=== PATIENT | male | born 1940 | race Caucasian/White ===

== ENCOUNTER 2019-07-27 04:51 | Inpatient (IN) ==
[2019-07-21 07:55] LABS: Appearance,Urine CLEAR; Bacteria,Urine 0 /hpf (0); Bilirubin,Urine NEG (NEG); Color,Urine YELLOW; Culture Indicated,Urine NO; Glucose,Urine (UA) NEGATIVE (NEG); Ketones,Urine 5/TR mg/dL (NEG); Leukocyte Esterase,Urine NEG /uL (NEG); Mucus,Urine FEW /hpf (0); Nitrate,Urine NEG (NEG); Protein,Urine 30 mg/dL (NEG); Specific Gravity,Urine 1.027 (1.000-1.035); Urine Blood NEG mg/dL (<0.03); Urine Hyaline Cast 6 /lpf (0-2); Urine RBC 1 /hpf (0-1); Urine Squamous Epithelial Cell < 1 /hpf (0-4); Urine WBC 1 /hpf (0-4)
[2019-07-21 07:56] LABS: Basophils # (Auto) 0.03 K/mcL (0.00-0.30); Basophils % (Auto) 0.3 % (0.0-2.0); Blood Urea Nitrogen 35 mg/dl (8-23); Calcium 10.2 mg/dl (8.6-10.4); Carbon Dioxide 22 mmol/L (22-30); Chloride 102 mmol/L (96-108); Estimated Average Glucose(eAG) 140 mg/dL; Glomerular Filtration Rate 52; Glucose 121 mg/dL (70-105); Granulocytes % (Auto) 68.4 % (38.0-78.0); Hematocrit 36.9 % (40.1-51.0); Hemoglobin 11.9 g/dL (13.7-17.5); Hemoglobin A1C 6.5 % HGB (4.0-6.0); Lymphocytes # (Auto) 2.43 K/mcL (1.50-4.80); Lymphocytes % (Auto) 23.8 % (15.5-49.0); Mean Cell Volume 94.6 fL (80.0-100.0); Mean Corpuscular HGB Conc 32.2 g/dL (31.0-36.0); Mean Platelet Volume 12.2 fL (7.4-10.4); Monocytes # (Auto) 0.66 K/mcL (0.10-0.90); Monocytes % (Auto) 6.5 % (1.0-12.0); Platelet Count 318 K/mcL (140-440); Red Cell Distribution Width 12.6 % (11.5-14.5); WBC 10.2 K/mcL (4.50-11.00)
[2019-07-27] MEDS ORDERED: SCOPOLAMINE 1 PATCH PATCH TOPICAL PRN (05:00)
[2019-07-27] MEDS ORDERED: IPRATROPIUM/ALBUTEROL 3 ML AMPUL.NEB NEB PRN ×2 (05:00→08:33)
[2019-07-27] MEDS ORDERED: ceFAZolin 2 GM in DEXTROSE 5% IN WATER 50 ML IV SCH (06:00)
[2019-07-27] MEDS ORDERED: CELECOXIB 200 MG CAPSULE PO SCH (06:00)
[2019-07-27] MEDS ORDERED: PREGABALIN 75 MG CAPSULE PO SCH (06:00)
[2019-07-27] MEDS ORDERED: oxyCODONE 10 MG TAB.ER.12H PO SCH (06:00)
[2019-07-27] MEDS ORDERED: MAGNESIUM SULFATE 2 GM/50 ML BAG IV ONE ×2 (07:29→09:40)
[2019-07-27] MEDS ORDERED: NALOXONE HCL 0.4 MG/ML VIAL IV PRN (08:33)
[2019-07-27] MEDS ORDERED: MEPERIDINE 25 MG/ML SYRINGE IV PRN (08:33)
[2019-07-27] MEDS ORDERED: diphenhydrAMINE 50 MG/ML VIAL IV PRN (08:33)
[2019-07-27] MEDS ORDERED: PROMETHAZINE 25 MG/ML VIAL IV PRN (08:33)
[2019-07-27] MEDS ORDERED: FLUMAZENIL 0.1 MG/ML ML IV PRN (08:33)
[2019-07-27] MEDS ORDERED: ePHEDrine 50 MG/ML AMPUL IV PRN (08:33)
[2019-07-27] MEDS ORDERED: ATROPINE SULFATE 0.4 MG/ML VIAL IV PRN (08:33)
[2019-07-27] MEDS ORDERED: ONDANSETRON 4 MG/2 ML VIAL IV PRN ×2 (08:33→09:09)
[2019-07-27] MEDS ORDERED: METHOCARBAMOL 1,000 MG/10 ML VIAL IV PRN (08:33)
[2019-07-27] MEDS ORDERED: LACTATED RINGERS 1,000 ML IV SCH (08:45)
[2019-07-27] MEDS ORDERED: ACETAMINOPHEN 1,000 MG/100 ML BOTTLE IV ONE (09:00)
[2019-07-27] MEDS ORDERED: TRANEXAMIC ACID 1,000 MG/10 ML VIAL IV ONE (09:09)
[2019-07-27] MEDS ORDERED: FLEETS ADULT ENEMA PR PRN (09:09)
[2019-07-27] MEDS ORDERED: DEXTROSE 31 GM ORAL.SUSP PO PRN (09:09)
[2019-07-27] MEDS ORDERED: MAGNESIUM HYDROXIDE 30 ML ORAL.SUSP PO PRN (09:09)
[2019-07-27] MEDS ORDERED: POLYETHYLENE GLYCOL 3350 17 GM PACKET PO PRN (09:09)
[2019-07-27] MEDS ORDERED: DEXTROSE 50% 50 ML VIAL IV PRN (09:09)
[2019-07-27] MEDS ORDERED: BENZOCAINE/MENTHOL 1 LOZENGE PO PRN (09:09)
[2019-07-27] MEDS ORDERED: HYDROmorphone 2 MG/ML VIAL IV PRN (09:09)
[2019-07-27] MEDS ORDERED: BISACODYL 10 MG SUPP.RECT PR PRN (09:09)
--- NOTE | 2019-07-27 09:09 | Brief Operative Note ---
Date of procedure: 07/27/19 Pre-op diagnosis: R hip severe OA Post-op diagnosis: same Procedure: Right anterior total hip arthroplasty Grafts/Implants: Yes (Depuy Actis 9 std stem, +5 36 delta head, 58 cup, neutral altrx liner) Anesthesia: GLMA Findings: severe arthritis Complications: none Surgeon: Jonah Ballesteros Recruiting And Selection Consultant: Lex Bach Estimated blood loss (cc): 250 Specimens Removed/Pathology: none sent Condition: stable Disposition: PACU
[2019-07-27] MEDS: fentaNYL 100 MCG/2 ML VIAL IV PRN ×4 (09:34→09:40)
[2019-07-27] MEDS ORDERED: PHENYLEPHRINE 10 MG/ML VIAL IV ONE (09:40)
[2019-07-27] MEDS ORDERED: DEXAMETHASONE 4 MG/ML VIAL IV ONE (09:40)
[2019-07-27] MEDS ORDERED: fentaNYL 100 MCG/2 ML VIAL IV ONE (09:40)
[2019-07-27] MEDS ORDERED: ROCURONIUM 10 MG/ML ML IV ONE (09:40)
[2019-07-27] MEDS ORDERED: ONDANSETRON 4 MG/2 ML VIAL IV ONE (09:40)
[2019-07-27] MEDS ORDERED: SUCCINYLCHOLINE 20 MG/ML ML IV ONE (09:40)
[2019-07-27] MEDS ORDERED: ePHEDrine 50 MG/ML AMPUL IV ONE (09:40)
[2019-07-27] MEDS ORDERED: GLYCOPYRROLATE 0.2 MG/ML VIAL IV ONE (09:40)
[2019-07-27] MEDS ORDERED: SUGAMMADEX SODIUM 200 MG/2 ML VIAL IV ONE (09:40)
[2019-07-27] MEDS ORDERED: PROPOFOL 200 MG/20 ML VIAL IV ONE (09:40)
[2019-07-27] MEDS ORDERED: KETAMINE 100 MG/ML ML IV ONE (09:40)
[2019-07-27] MEDS ORDERED: LIDOCAINE HCL/PF 100 MG/5 ML SYRINGE IV ONE (09:40)
[2019-07-27] MEDS: HYDROmorphone 2 MG/ML VIAL IV PRN ×2 (09:45→10:00)
--- NOTE | 2019-07-27 09:46 | Operative Note ---
DATE OF OPERATION: 07/27/2019 PREOPERATIVE DIAGNOSIS: Right hip severe osteoarthritis. POSTOPERATIVE DIAGNOSIS: Right hip severe osteoarthritis. PROCEDURE PERFORMED: Right anterior total hip arthroplasty placing a DePuy Actis size 9 standard offset femoral stem; a +5, 36 mm Delta ceramic head ball; a 58 [place] cup with a neutral AltrX liner. SURGEON: Jonah Ballesteros M.D. MACHINE FORMER: Osvaldo Bach PA-C. The PA's assistance was required for the safe and efficient completion of the entire case. This provider's expertise and technical skill were required throughout the case. The PA assisted with preoperative coordination, intraoperative retraction, wound closure, dressing and splint application, as well as postoperative documentation and care coordination. ANESTHESIA: General. DRAINS: None. SPECIMENS: Femoral head which was discarded. BLOOD LOSS: 250 mL. COMPLICATIONS: None. POSTOPERATIVE CONDITION: Stable. INDICATIONS FOR SURGERY: This is a 79-year-old male who has had progressive worsening, severe right hip pain. Radiographs showed severe [id number] osteoarthritis. FINDINGS AT SURGERY: Severe arthritis. Post implantation showed satisfactory component position. PROCEDURE IN DETAIL: The patient had been seen preoperatively. Informed consent obtained after discussion of risks and benefits of surgery. Risks including, but not limited to, bleeding; infection; injury to nerves, blood vessels, and other surrounding structures; anesthetic risks; incomplete or no resolution of symptoms; leg length discrepancy; dislocation; fracture; DVT and pulmonary embolus risks; and the possibility of needing further revision joint surgery. The patient understood these risks and wished to proceed. Correct operative site was marked and then spinal anesthesia given. The patient was then taken to the operating room and LMA general given. The patient was carefully transferred to the fracture table and then the operative hip was carefully prepped and draped in normal sterile fashion. Timeout was performed verifying patient name, operative site, and plan. Ioban was used to cover all skin surfaces. A standard anterior approach incision was made with a scalpel through skin and subcutaneous tissue. Hemostasis was obtained with Bovie cautery. Careful blunt dissection was taken down on the tensor fascia and then this was undermined circumferentially. IrriSept was irrigated and a ring retractor placed. Tensor fascia was incised in line with muscle fibers and then careful blunt dissection taken medial to the muscle belly. Blunt cobra retractors were placed on the superior and inferior femoral neck and then circumflex vessels were coagulated and cut and vastus fascia split distally. Anterior capsulectomy was performed and then the capsule releases. Corkscrew was placed in the femoral head. Prior to placement of the corkscrew we did take x-rays for joint point. Once a corkscrew was placed we used fluoroscopy to identify our approximate neck cut trajectory and then our femoral neck was cut with oscillating tip saw. Femoral head was removed and the acetabulum exposed. Labrum was excised circumferentially as well as soft tissue from the floor. We then irrigated with IrriSept. We then began sequentially reaming until 1 mm smaller than the final implant. We then opened the acetabular component. IrriSept was irrigated, after a minute pulse lavaged with saline and then the cup was impacted using the [id number]. Joint point was used to verify satisfactory cup position. A center hole cover was placed and then the acetabular liner was carefully aligned and impacted and carefully verified to be fully seated. We then released traction. The leg was externally rotated and released capsule around the medial neck. The leg was then extended and adducted. Capsule was released out towards greater trochanter and then the proximal femur was exposed. Box osteotome was used to gain canal entry and an awl was used to identify canal trajectory. Rongeur and rasp were used to lateralize and then we began sequentially broaching up to the final size. We calcar planed down onto the broach and then the neck trial and head ball were placed. The hip was reduced. Fluoro was brought in and x-rays taken, joint point was used to verify satisfactory position. We then re-dislocated and removed the trial implants. Definitive implants were opened. We then irrigated the femoral canal with IrriSept again, after a minute pulse lavaged with saline. The final stem was impacted and seated. We then opened the head ball. The stem was carefully cleaned and dried and the head ball was impacted. We then reduced the hip with satisfactory tension. Final fluoro images were taken and saved. We irrigated the joint with IrriSept, after a minute pulse lavaged with saline again and then closed the tensor fascia with two running #1 Vicryls, one running proximal, one running distal and a ring retractor was removed. Final IrriSept irrigation was done, after a minute final pulse lavage, and then fat was tacked to fascia with Vicryl and then 2-0 Monocryl for subcutaneous and tavon for skin. Xeroform and sterile dressing were applied. The patient was then awakened, extubated, and transferred to recovery in stable condition. STAR:karuna Job ID: [id number] Doc ID: [id number] Jonah Ballesteros MD
--- NOTE | 2019-07-27 10:26 | XRay Report ---
CLINICAL INFORMATION: Postsurgical follow-up TECHNIQUE: AP pelvis. AP and crosstable lateral right hip COMPARISON: Previous examination dated 06/05/2016 FINDINGS: Status post right total hip arthroplasty. Prosthetic components are in anatomic positions. There is soft tissue gas present. There are skin tavon overlying the right hip. IMPRESSION: Status post right total hip arthroplasty Interpreted and Authenticated by: Roly Cisneros 07/27/19
[2019-07-27] MEDS: 0.9 % SODIUM CHLORIDE 1,000 ML IV SCH ×2 (10:48→21:36)
[2019-07-27] MEDS: INSULIN LISPRO 1 UNIT/0.01 ML UNIT SQ SCH ×3 (11:44→21:33)
--- NOTE | 2019-07-27 14:53 | XRay Report ---
CLINICAL INFORMATION: Right hip replacement TECHNIQUE: 0.4 minutes fluoroscopy utilized by Dr. Ballesteros. Spot films were obtained. Right total hip arthroplasty performed. IMPRESSION: Intraoperative fluoroscopy and spot films as above Interpreted and Authenticated by: Roly Cisneros 07/27/19
[2019-07-27] MEDS: ceFAZolin 1 GM VIAL IV SCH (15:04)
[2019-07-27] MEDS: oxyCODONE/APAP 5/325MG TABLET PO PRN ×2 (15:04→21:33)
[2019-07-27] MEDS: 0.9 % SODIUM CHLORIDE 10 ML SYRINGE IV SCH ×2 (15:04→21:36)
[2019-07-27] MEDS: metFORMIN 850 MG TABLET PO SCH (17:35)
[2019-07-27] MEDS ORDERED: SENNOSIDES 1 TABLET PO SCH (21:00)
[2019-07-27] MEDS ORDERED: LATANOPROST OPHTH DROPS 2.5ML BOTTLE OU SCH (21:00)
[2019-07-27] MEDS ORDERED: ATORVASTATIN 20 MG TABLET PO SCH (21:00)
[2019-07-27] MEDS ORDERED: TAMSULOSIN 0.4 MG CAPSULE PO SCH (21:00)
[2019-07-27] MEDS: ASPIRIN 81 MG TAB.CHEW PO SCH (21:32)
[2019-07-27] MEDS: buPROPion 150 MG TAB.SR.12H PO SCH (21:32)
[2019-07-27] MEDS: DOCUSATE SODIUM 100 MG CAPSULE PO SCH (21:33)
[2019-07-27] MEDS: NABUMETONE 500 MG TABLET PO SCH (21:45)
[2019-07-27] MEDS: KETOROLAC 15 MG/ML VIAL IV PRN (21:46)
[2019-07-28] MEDS: ceFAZolin 1 GM VIAL IV SCH (00:10)
[2019-07-28] MEDS: oxyCODONE/APAP 5/325MG TABLET PO PRN ×2 (03:00→08:58)
[2019-07-28] MEDS: KETOROLAC 15 MG/ML VIAL IV PRN (05:14)
[2019-07-28] MEDS: 0.9 % SODIUM CHLORIDE 10 ML SYRINGE IV SCH (05:18)
--- NOTE | 2019-07-28 07:10 | Discharge Summary ---
Providers - Providers Patient information: Note initiated : 07/28/19 at 7:07 am Service Date, if different from initiated Date: [] Patient: Chay Alexander 79 y/o M admitted on 07/27/19 for Right Total Hip Arthroplasty. Chief Complaint: [] Discharge date: 07/28/19 Hospitalization Hospital Course: Pt was admitted for a R JONAH. Pt underwent procedure on day of admission. Pt stayed one night on the floor for IV pain meds IV abx and PT. Pt will take ASA for DVT prophylaxis. f/u in 2 weeks. Discharge diagnosis: R hip OA Exam - Exam Clean and dry: Yes Weight bearing status: as tolerated Ortho Discharge - JONAH - Patient Instructions Diet: Regular Diet Activity: activity as tolerated, weight bearing as tolerated Total Hip Protocol: Follow activity instructions as provided by Physical Therapy. Dressing Care: May shower in 2 days - Follow Up Plan Disposition: Home, Self-Care Prognosis: Good Rehab Potential: Good Overall status at discharge: patient is progressing back to baseline - Orders For Discharge Prescriptions: Aspirin 81 mg PO BID #60 tab.chew Transmission Status: Pending to [address] oxyCODONE/APAP [Percocet 5-325 mg] 1 - 2 tab PO Q6HP PRN #70 tab PRN Reason: Pain Level 3-6 Prescription Printed Pending Studies Resuscitation Status Full Code Diet Consistent Carbohydrate Diet Start ThuJul 27 909 Aspirin (Aspirin) 81 mg PO BID [facility] Last Admin: 07/27/19 21:32 Dose: 81 mg Documented by: OSKAR Atorvastatin Calcium (Lipitor) 20 mg PO HS [facility] Last Admin: 07/27/19 21:33 Dose: 20 mg Documented by: OSKAR Bupropion HCl (Wellbutrin Sr) 150 mg PO BID [facility] Last Admin: 07/27/19 21:32 Dose: 150 mg Documented by: OSKAR Diagnostic Test (Pha) (Accu-Chek) 1 each FS ACHS [facility] Last Admin: 07/27/19 21:32 Dose: 1 each Documented by: Admin: 07/27/19 16:46 Dose: 1 each Documented by: Admin: 07/27/19 10:56 Dose: 1 each Documented by: VANESSA Docusate Sodium (Colace) 100 mg PO BID [facility] Last Admin: 07/27/19 21:33 Dose: 100 mg Documented by: OSKAR Sodium Chloride (Sodium Chloride 0.9%) 1,000 mls @ 100 mls/hr IV .Q10H [facility] Last Admin: 07/27/19 21:36 Dose: 100 mls/hr Documented by: Infusion: 07/27/19 20:48 Dose: 100 mls/hr Documented by: Admin: 07/27/19 10:48 Dose: 100 mls/hr Documented by: VANESSA Insulin Human Lispro (Humalog) 0 unit SQ [facility]; Protocol Last Admin: 07/27/19 21:33 Dose: Not Given Documented by: Admin: 07/27/19 16:47 Dose: Not Given Documented by: Admin: 07/27/19 11:44 Dose: 2 units Documented by: VANESSA Ketorolac Tromethamine (Toradol) 15 mg IV Q6HP PRN PRN Reason: Pain Stop: 07/29/19 09:12 Last Admin: 07/28/19 05:14 Dose: 15 mg Documented by: Admin: 07/27/19 21:46 Dose: 15 mg Documented by: OSKAR Latanoprost (Xalatan Ophth Drops) 1 gtt [facility] Last Admin: 07/27/19 21:36 Dose: Not Given Documented by: OSKAR [facility] Last Admin: 07/27/19 17:35 Dose: 850 mg Documented by: SANA Nabumetone (Relafen) 750 mg PO BID [facility]; Protocol Last Admin: 07/27/19 21:45 Dose: Not Given Documented by: OSKAR Oxycodone/Acetaminophen (Percocet 5-325 Mg) 0 tab PO Q4HP PRN PRN Reason: PAIN LEVEL 3-6 Last Admin: 07/28/19 03:00 Dose: 2 tab Documented by: Admin: 07/27/19 21:33 Dose: 2 tab Documented by: Admin: 07/27/19 15:04 Dose: 2 tab Documented by: SANA Aguilar (Senokot) 2 tab PO [facility] Last Admin: 07/27/19 21:33 Dose: 2 tab Documented by: OSKAR Sodium Chloride (Saline Flush) 10 ml IV Q8 [facility] Last Admin: 07/28/19 05:18 Dose: Not Given Documented by: Admin: 07/27/19 21:36 Dose: Not Given Documented by: Admin: 07/27/19 15:04 Dose: 10 ml Documented by: SANA Tamsulosin HCl (Flomax) 0.8 mg PO QHS [facility] Last Admin: 07/27/19 21:33 Dose: 0.8 mg Documented by: OSKAR Shift Summary 07/28/19 04:56 Shift Summary by Kareen Gomes The patient is alert and oriented times four, he requires 1 SBA with a FWW/gaitbelt and has no transfer concerns regarding his gait/balance. He has a adductor wedge in place for his right total hip arthroplasty, he is hard of hearing with very poor vision with a history of glaucoma and is a Type II diabetic and required no coverage (HS CBG was 136). His pain is well managed with Percocet 2 tabs given twice and Toradol IV given instead of Relafan (see dose with use), CMS intact and Aquacel dressing CDI to his hip. IV to his left forearm infusing NS at 100 ml/hr and has voided once this shift for 100 ml via urinal at 0500 and was straight catheterized at shift change last evening for 850 ml and has a history of BPH, he was bladder scanned 4 times this shift with less than 150 ml. VSS, uses oxygen via nasal cannula at home and currently on 2 LPM to maintain Sp02 above 90% and denies dyspnea, HOB elevated at 30-40 degrees for orthopnea at rest. Will update shift report at bedside. Initialized on 07/28/19 04:56 - END OF NOTE
[2019-07-28] MEDS ORDERED: PANTOPRAZOLE 40 MG TABLET PO SCH (07:30)
[2019-07-28 08:25] LABS: Hematocrit 26.8 % (40.1-51.0); Hemoglobin 8.6 g/dL (13.7-17.5)
[2019-07-28] MEDS: INSULIN LISPRO 1 UNIT/0.01 ML UNIT SQ SCH ×2 (08:49→11:49)
[2019-07-28] MEDS: buPROPion 150 MG TAB.SR.12H PO SCH (08:50)
[2019-07-28] MEDS: metFORMIN 850 MG TABLET PO SCH (08:50)
[2019-07-28] MEDS: ASPIRIN 81 MG TAB.CHEW PO SCH (08:51)
[2019-07-28] MEDS: DOCUSATE SODIUM 100 MG CAPSULE PO SCH (08:59)
[2019-07-28] MEDS ORDERED: SELENIUM 200 MCG PO SCH (09:00)
[2019-07-28] MEDS ORDERED: PARoxetine 20 MG TABLET PO SCH (09:00)
[2019-07-28] MEDS ORDERED: TIMOLOL 0.5% OPHTH DROPS BOTTLE 5ML OU SCH (09:00)
[2019-07-28] MEDS ORDERED: LISINOPRIL 20 MG TABLET PO SCH (09:00)
[2019-07-28] MEDS ORDERED: amLODIPine 5 MG TABLET PO SCH (09:00)
[2019-07-28] MEDS ORDERED: FENOFIBRATE 43 MG CAPSULE PO SCH (09:00)
[2019-07-28] MEDS ORDERED: CYANOCOBALAMIN (VITAMIN B-12) 500 MCG TABLET PO SCH (09:00)
[2019-07-28] MEDS: NABUMETONE 500 MG TABLET PO SCH ×2 (09:03→09:37)
== END 2019-07-28 12:45 | disposition home or self-care (01) | DRG 470 ==
LOC: MEDSUR 04:51
PROVIDERS: ADMIT Orthopaedic Surgery; ATTEND Orthopaedic Surgery